=== PATIENT | female | born 1960 | race Caucasian/White ===

== ENCOUNTER 2023-07-11 12:29 | Observation (INO) | payer OTHER ==
[~2023-07-11] VITALS: Ht 154.9 cm; Wt 73.0 kg
[~2023-07-11 12:29] MED LIST: ASPI-1822 PO; LISI1TAB PO; METF-346 PO; SIMV-372 PO
[2023-07-11 12:36] VITALS: BP 179/90; PULSE 59; RESP 16; TEMP 97.6; O2SAT 98
[2023-07-11 15:26] LABS: BASOPHILS % (AUTO) 0.6 % (0.0-2.0); EOSINOPHILS # (AUTO) 0.1 K/uL (0-0.4); EOSINOPHILS % (AUTO) 1.1 % (0.0-4.0); HEMATOCRIT 38.6 % (36-48); HEMOGLOBIN 13.2 g/dL (12.0-16.0); LYMPHOCYTES # (AUTO) 2.3 K/uL (2.5-16.5); LYMPHOCYTES % (AUTO) 39.3 % (20.5-51.1); MEAN CORPUSCULAR HEMOGLOBIN 30 pg (27-31); MEAN CORPUSCULAR HGB CONC 34 g/dL (33-37); MEAN CORPUSCULAR VOLUME 87.7 fL (80-94); MONOCYTES # (AUTO) 0.4 K/uL (0.8-1.0); MONOCYTES % (AUTO) 7.2 % (1.7-9.3); NEUTROPHILS # (AUTO) 3.1 K/uL (1.8-7.7); NEUTROPHILS % (AUTO) 51.8 % (42.2-75.2); PLATELET COUNT (AUTO) 295 K/uL (140-450); RED CELL DISTRIBUTION WIDTH 13.7 % (11.6-13.7)
[2023-07-11 15:34] LABS: ANION GAP 12.4 (8-16); CALCIUM 9.1 mg/dL (8.5-10.1); CARBON DIOXIDE 30.3 mmol/L (21-32); CREATININE 0.8 mg/dL (0.6-1.3); POTASSIUM 3.7 mmol/L (3.5-5.1)
[2023-07-11] MEDS: MORPHINE SULFATE 4 MG/ML SYR IVP ONE (17:16)
[2023-07-11] MEDS ORDERED: MORPHINE SULFATE 4 MG/ML SYR IVP PRN (17:30)
[2023-07-11] MEDS ORDERED: ONDANSETRON 4 MG/2 ML VIAL IVP PRN (17:30)
[2023-07-11] MEDS ORDERED: KCL 20 MEQ IN 100 mL PREMIX 200 ML IV PRN (17:30)
[2023-07-11] MEDS ORDERED: MAGNESIUM OXIDE 400 MG TAB PO PRN (17:30)
[2023-07-11] MEDS ORDERED: HYDROcodone/APAP 5/325 MG 1 TAB TAB PO PRN (17:30)
[2023-07-11] MEDS ORDERED: hydrALAZINE 20 MG/ML VIAL IVP PRN (17:35)
[2023-07-11] MEDS ORDERED: CETI-366 PO (17:48)
[2023-07-11] MEDS ORDERED: OMEP40EC23 PO (17:48)
[2023-07-11] MEDS ORDERED: CITA-71 PO (17:48)
[2023-07-11] MEDS ORDERED: BACL10TA4 PO (17:48)
[2023-07-11] MEDS ORDERED: METO-748 PO (17:48)
[2023-07-11] MEDS ORDERED: HYDR-3293 PO (17:48)
[2023-07-11] MEDS: NIFEdipine 30 MG TABER PO SCH (18:19)
[2023-07-11 21:05] VITALS: PULSE 70; RESP 18; O2SAT 93
[2023-07-11 21:15] VITALS: PULSE 65
[2023-07-11 23:46] VITALS: PULSE 63
[2023-07-12] VITALS (7 sets, daily range): BP systolic 125–145; BP diastolic 66–77; PULSE 61–84; RESP 18–71; TEMP 97–98.6; O2SAT 71–98
[2023-07-12] MEDS: ACETAMINOPHEN 325 MG TAB PO PRN (03:07)
[2023-07-12 05:39] LABS: BASOPHILS % (AUTO) 0.5 % (0.0-2.0); EOSINOPHILS # (AUTO) 0.1 K/uL (0-0.4); HEMATOCRIT 38.1 % (36-48); HEMOGLOBIN 12.7 g/dL (12.0-16.0); LYMPHOCYTES # (AUTO) 1.6 K/uL (2.5-16.5); LYMPHOCYTES % (AUTO) 30.9 % (20.5-51.1); MEAN CORPUSCULAR HEMOGLOBIN 30 pg (27-31); MEAN CORPUSCULAR HGB CONC 34 g/dL (33-37); MEAN CORPUSCULAR VOLUME 88.6 fL (80-94); MONOCYTES # (AUTO) 0.4 K/uL (0.8-1.0); MONOCYTES % (AUTO) 8.3 % (1.7-9.3); NEUTROPHILS # (AUTO) 3.1 K/uL (1.8-7.7); NEUTROPHILS % (AUTO) 59.3 % (42.2-75.2); PLATELET COUNT (AUTO) 261 K/uL (140-450); RED CELL DISTRIBUTION WIDTH 13.6 % (11.6-13.7); WHITE BLOOD COUNT (AUTO) 5.3 K/uL (4.8-10.8)
[2023-07-12 06:19] LABS: ANION GAP 13.6 (8-16); CALCIUM 8.9 mg/dL (8.5-10.1); CARBON DIOXIDE 29.1 mmol/L (21-32); CREATININE 0.7 mg/dL (0.6-1.3); POTASSIUM 3.7 mmol/L (3.5-5.1)
[2023-07-12] MEDS: ENOXAPARIN 40 MG/0.4 ML SYR SUBQ SCH (08:30)
[2023-07-12] MEDS: IBUPROFEN 800 MG TAB PO PRN (11:37)
[2023-07-12] MEDS ORDERED: NIFE-184 PO (17:04)
[2023-07-13] MEDS ORDERED: NIFEdipine 30 MG TABER PO SCH (09:00)
[2023-07-13] MEDS ORDERED: METOPROLOL SUCCINATE 50 MG TABER PO SCH (09:00)
== END 2023-07-12 19:40 | disposition home or self-care (01) ==
LOC: MED 12:29 → MTU 17:30 → MMU 17:32
PROVIDERS: ADMIT Student in an Organized Health Care Education/Training Program; ATTEND Student in an Organized Health Care Education/Training Program
DX: I16.0 Hypertensive urgency (principal); E11.9 Type 2 diabetes mellitus without complications; E78.5 Hyperlipidemia, unspecified; E66.9 Obesity, unspecified; F17.200 Nicotine dependence, unspecified, uncomplicated; Z79.899 Other long term (current) drug therapy
CPT/HCPCS: 36415; 71045; 80048; 83735; 83880; 84484; 85025; 87081; 93005; 96372; 96374; 99285; C8929; G0378; J1650; J2270